=== PATIENT | male | born 1955 ===

== ENCOUNTER → 2024-06-05 09:47 | Outpatient (BNVA) | payer MEDICARE, OTHER, SELFPAY | PROVIDERS: Referring Provider Nurse Practitioner Family; Visit Provider Nurse Practitioner Family | DX: L82.1 Other seborrheic keratosis (principal); D22.5 Melanocytic nevi of trunk; M71.342 Other bursal cyst, left hand; L82.0 Inflamed seborrheic keratosis; Z78.9 Other specified health status | CPT/HCPCS: 17110; 99203 ==

== ENCOUNTER → 2024-07-01 10:54 | Outpatient (BNVA) | payer MEDICARE, OTHER, SELFPAY | PROVIDERS: Visit Provider Student in an Organized Health Care Education/Training Program | DX: R19.5 Other fecal abnormalities (principal) | CPT/HCPCS: 99204 ==

== ENCOUNTER 2024-07-16 10:59 | Day surgery (SDC) | payer MEDICARE, OTHER, SELFPAY ==
--- NOTE | 2024-07-16 11:40 | W.PM.OPSUD ---
Surgery/Procedure H&P Update DATE OF PROCEDURE: July 16, 2024 DATE H&P PERFORMED: 07/01/24 H&P UPDATE INFORMATION: I have reviewed H&P completed within last 30 days, I have examined patient prior to procedure and No changes to prior documentation PLANNED PROCEDURE: Operation Date: 07/16/24 13:00 Proposed Procedures p Colonoscopy [id number] Z12.11(Not Applicable) - Edy Cortes MD
[2024-07-16 11:47] VITALS: BP 154/96; PULSE 62; RESP 16; TEMP 36.8; O2SAT 96
[2024-07-16] MEDS: sodium chloride 0.9% 1,000 ML 15 ML IV (11:52)
--- NOTE | 2024-07-16 12:39 | ANES.PREANE2 ---
Pre-Anesthetic Assessment Height/Weight: Height 1.78 m Weight 92.533 kg Temp Pulse Resp BP Pulse Ox O2 Del Method 98.2 F 62 16 154/96 96 Room Air 07/16/24 11:47 07/16/24 11:47 07/16/24 11:47 07/16/24 11:47 07/16/24 11:47 07/16/24 11:47 Preop Diagnosis: screening Operation Date: 07/16/24 13:00 Proposed Procedures p Colonoscopy [id number] Z12.11(Not Applicable) - Edy Cortes MD Familial anesthetic complications: none Was Beta Anjel taken within 24 hours: N/A Was Clonidine taken within 24 hours: N/A Last intake: Intake Last Liquid Date 07/15/24 Last Liquid Time 20:00 Last Solid Date 07/14/24 Last Solid Time 18:00 Social Alcohol (few times a week.) and No tobacco Exam alert, oriented x 3, clear to auscultation bilaterally and regular rate & rhythm Airway Submandibular: within normal limits Cervical ROM: within normal limits Mallampati: Class II Dentition: full Pulmonary None reported CV/HEM Hypertension None reported Hepatic None reported GI None reported Metabolic Hyperlipidemia Musc/skel right hand is numb recent carpal tunnel release. 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 ) Anesthetic Plan ASA status: 2 Anesthesia: MAC Medications/Allergies Home Medications ?Medication ?Instructions ?Recorded ?Confirmed ?Last Taken ?Type amlodipine 2.5 mg tablet 5 mg PO DAILY 07/01/24 07/10/24 07/15/24 History aspirin 81 mg tablet,delayed 81 mg PO DAILY 07/01/24 07/10/24 07/10/24 History release (Adult Aspirin Regimen) hydrochlorothiazide 12.5 mg tablet 12.5 mg PO DAILY 07/01/24 07/10/24 07/15/24 History naproxen sodium 220 mg tablet 220 mg PO Q12H PRN Pain 07/01/24 07/10/24 07/10/24 History (Flanax (naproxen)) Allergies Allergy/AdvReac Type Severity Reaction Status Date / Time lisinopril Allergy Severe ALGY-Hives Verified 07/10/24 12:31 Lylxdyv-RIF-[id number] Reductase Allergy Severe ALGY-Hives Verified 07/10/24 12:31 Inhibitor Current Medications Generic Name Dose Route Start Last Admin Trade Name Freq PRN Reason Stop Dose Admin Sodium Chloride 1,000 mls @ 15 mls/hr 07/16/24 11:32 07/16/24 11:52 Sodium Chloride 0.9% IV 07/17/24 11:31 15 mls/hr .Q24H PRN Administration COLONOSCOPY FLUIDS PFSH Anesthesia Social History Smoking and tobacco/nicotine status: former use of tobacco/nicotine
[2024-07-16 13:08] VITALS: BP 96/64; PULSE 91; RESP 14; TEMP 36.6; O2SAT 94
--- NOTE | 2024-07-16 13:10 | ANE.PACU2 ---
Inpatient post-anesthesia follow up: Airway intact: Yes Vital signs: Temperature 97.8 F Pulse Rate 84 Respiratory Rate 16 Blood Pressure 134/82 Pulse Oximetry 94 Oxygen Delivery Me thod Room Air Oxygen Flow Rate 4 Fraction of Inspir ed Oxygen Hydration adequate: Yes Nausea and vomiting: No Pain level: 1 Mental status: Baseline
[2024-07-16 13:20] VITALS: BP 115/77; PULSE 67; RESP 16; O2SAT 95
[2024-07-16 13:30] VITALS: BP 134/82; PULSE 84; RESP 16; O2SAT 94
== END 2024-07-16 13:42 | disposition home or self-care (01) ==
PROVIDERS: PCP Nurse Practitioner Family; Visit Provider Student in an Organized Health Care Education/Training Program
PROC: 0DJD8ZZ Inspection of Lower Intestinal Tract, Via Natural or Artificial Opening Endoscopic (ICD-10-PCS; CPT 45378; principal; 2024-07-16 13:00)
DX: R19.5 Other fecal abnormalities (principal); K57.30 Diverticulosis of large intestine without perforation or abscess without bleeding; I10 Essential (primary) hypertension; E78.5 Hyperlipidemia, unspecified; Z86.73 Personal history of transient ischemic attack (TIA), and cerebral infarction without residual deficits; Z79.899 Other long term (current) drug therapy; Z79.82 Long term (current) use of aspirin; Z88.8 Allergy status to other drugs, medicaments and biological substances; Z87.891 Personal history of nicotine dependence
CPT/HCPCS: 45378; J2704; J7030